=== PATIENT | male | born 1955 | race Native Hawaiian/Other Pacific Islander ===

== ENCOUNTER 2017-06-05 00:51 | Inpatient (IN) | payer OTHER ==
[2017-05-21 13:18] LABS: URINE BILIRUBIN NEGATIVE (Negative); URINE BLOOD TRACE (Negative); URINE COLOR YELLOW; URINE GLUCOSE-RANDOM* NEGATIVE (Negative); URINE KETONES NEGATIVE (Negative); URINE LEUKOCYTES-REFLEX NEGATIVE (Negative); URINE PROTEIN (DIPSTICK) NEGATIVE (Negative); URINE SPECIFIC GRAVITY 1.025 (1.003-1.035); URINE UROBILINOGEN 0.2 E.U./dl (0.2-1.0)
[2017-05-21 13:31] LABS: ALBUMIN 3.5 g/dL (3.4-5.0); CALCIUM 8.4 mg/dL (8.5-10.1); POTASSIUM 3.8 mmol/L (3.5-5.1); TOTAL BILIRUBIN 0.4 mg/dL (<0.1-1.0); TOTAL PROTEIN 6.5 g/dL (6.4-8.2)
[2017-05-21 15:29] LABS: HEMATOCRIT 41.6 % (42.0-52.0); HEMOGLOBIN 13.5 gm/dL (14.0-18.0); MCH 29.3 pg (26.0-34.0); MCHC 32.4 g/dL (28.0-37.0); MCV 90.2 fL (80.0-100.0); RBC 4.61 mil/uL (4.50-6.00); RDW 13.7 % (10.5-14.5); WBC 6.9 thou/uL (4.0-11.0)
[2017-05-21 15:32] LABS: INR 1.1; PROTIME 11.4 Seconds (9.3-11.4)
[2017-06-05] VITALS (8 sets, daily range): BP systolic 114–139; BP diastolic 69–84
[~2017-06-05] VITALS: Ht 175.3 cm; Wt 93.0 kg
--- NOTE | ~2017-06-05 | O ---
[facility] [place] [address] [place] [address] OPERATIVE REPORT Name: ILANA MURPHY Room #: 411-P [facility] M.R.#: [id number] Admission: 06/05/17 Attend Phys: Mateusz Yost MD Discharge: 06/08/17 Date of : 59 Report #: [id number] THIS REPORT FOR: //name// CC: Belle Yost DATE OF SERVICE: 06/05/2017 PREOPERATIVE DIAGNOSIS: Left knee degenerative joint disease, severe. POSTOPERATIVE DIAGNOSIS: Left knee degenerative joint disease, severe. PROCEDURE: Left total knee arthroplasty. SURGEON: Mateusz Yost MD. CRATE TIER: SYLWIA Wood. INDICATIONS FOR CRATE TIER: During the course of operation, extensive manipulation, retraction and limb positioning was required. This was afforded to me by my contract administrative assistant. ANESTHESIA: General. INDICATIONS: See hospital H and P. IMPLANTS UTILIZED: Used a [employer] knee system. We used a size 7 cruciate retaining Legion porous femoral component. Used a Sara II nonporous tibial baseplate, also size 7. We used a 9 mm polyethylene insert and a 35 mm patella. DESCRIPTION OF PROCEDURE: After adequate general anesthesia had been obtained, the patient's left lower extremity was prepped and draped in the usual meticulous sterile fashion. Limb was exsanguinated with gravity and tourniquet inflated to 350 torr. An anterior midline incision was made, subQ divided sharply. Hemostasis obtained with the electrocautery. Medial parapatellar incision was made. Infrapatellar fat pad excised. Medial release performed at the level of the joint only. The drill was used to drill the distal femur. This hole was enlarged, irrigated, suctioned and the intramedullary guide placed the full length of the femur. The distal femoral cutting guide was pinned at appropriate location and the distal femoral cut was made. We used a measuring device and determined that a size 7 was the appropriate size for this patient. We then marked the distal femur, impacted the cutting guide into position and the anterior, posterior and chamfer cuts were made. Rongeur was used to remove additional osteophytes. [facility] [address] [place] [address] OPERATIVE REPORT Name: ILANA MURPHY Room #: 411-P [facility] M.R.#: [id number] Admission: 06/05/17 Attend Phys: Mateusz Yost MD Discharge: 06/08/17 Date of : 59 Report #: [id number] At this time, the tibia was translated anteriorly, menisci were excised. The drill was used to drill central portion of the tibia. This hole was enlarged, irrigated, suctioned, and the intramedullary guide placed the full length of the tibia. The proximal tibial cutting guide placed at appropriate height. Proximal tibia cut was made, 7 tray gave us the best coverage on the tibia. The 9 tibial insert trial was placed with trial components and the knee was taken through a full range of motion. Knee had full extension and flexion and good stability to varus and valgus stressing. Patella tracked normally. At this time, the patella was measured, cutting guide clamped into place, patellar cut was made, 35 template gave us the best coverage. Pedicles were drilled, trial component put in position, it tracked normally. At this time, the knee was taken through several cycles of flexion and extension. Tibial tray rotation was marked. The femur was placed, the trial components were removed. The tibial keel cuts were made. The knee was irrigated with both pulse lavage and antibiotic irrigation. Bone plugs were placed in proximal tibia and distal femur. The cement was vacuum mixed and when it reached the appropriate consistency, the knee was thoroughly dried, the tibial tray was cemented in place. Excess cement was removed. The polyethylene was impacted in place and the femur impacted in place and the knee was taken out to 30 degrees of flexion with uniform compression placed across components. Patellar button was then cemented into place and again, excess cement was removed. Drains were placed superolaterally, both deep and superficial. The cement was allowed to fully cure. When it had done so, the knee was irrigated, dried thoroughly, inspected. The retinacular layer was then closed with combination of interrupted [id number] #1 Vicryl as well as running #1 Tevdek. SubQ was closed with 2-0 Monocryl, skin closed with josafat. Sterile compressive dressing applied. Tourniquet deflated. <ELECTRONICALLY SIGNED> By: Mateusz Yost MD 06/10/17 [id number] Mateusz Yost MD /nt
[~2017-06-05 00:51] MED LIST: COUMADIN6 MG PO; FLOMAX0.4 MG PO; HYDROCODONE-AP1 EA11 PO; IRON325 PO; ITRACONAZOLE100 MG PO; MAGOX 400400 MG PO; PROAIR HFA8.5 GM IH; PROSCAR 5MG TABL5 MG PO
[2017-06-06] VITALS: BP 135/70
[2017-06-06 06:01] LABS: HEMATOCRIT 38.8 % (42.0-52.0); HEMOGLOBIN 12.8 gm/dL (14.0-18.0); MCH 29.2 pg (26.0-34.0); MCV 88.5 fL (80.0-100.0); RBC 4.39 mil/uL (4.50-6.00); RDW 13.6 % (10.5-14.5); WBC 10.2 thou/uL (4.0-11.0)
[2017-06-06 08:00] VITALS: BP 130/68
[2017-06-06 13:50] VITALS: BP 130/68
[2017-06-06 16:48] VITALS: BP 108/75
[2017-06-06 20:23] VITALS: BP 123/70
[2017-06-07 03:31] VITALS: BP 127/61
[2017-06-07 05:28] LABS: HEMOGLOBIN 13.2 gm/dL (14.0-18.0); MCV 88.4 fL (80.0-100.0); RBC 4.41 mil/uL (4.50-6.00); RDW 13.5 % (10.5-14.5); WBC 10.2 thou/uL (4.0-11.0)
[2017-06-07 05:34] LABS: CALCIUM 8.3 mg/dL (8.5-10.1); MAGNESIUM 1.7 mg/dL (1.8-2.4); POTASSIUM 3.6 mmol/L (3.5-5.1)
[2017-06-07] MEDS ORDERED: XARELTO10 MG PO (07:03)
[2017-06-07] MEDS ORDERED: PERCOCET 10-321 EACH PO (07:03)
[2017-06-07 09:48] VITALS: BP 126/87
[2017-06-07 12:08] VITALS: BP 130/68
[2017-06-07 17:54] VITALS: BP 127/84
[2017-06-07 21:05] VITALS: BP 148/73
[2017-06-08 06:04] VITALS: BP 128/55
[2017-06-08 06:21] LABS: HEMATOCRIT 34.7 % (42.0-52.0); HEMOGLOBIN 11.7 gm/dL (14.0-18.0); MCH 29.6 pg (26.0-34.0); MCHC 33.7 g/dL (28.0-37.0); RBC 3.94 mil/uL (4.50-6.00); RDW 13.2 % (10.5-14.5); WBC 8.5 thou/uL (4.0-11.0)
[2017-06-08 06:31] LABS: CALCIUM 8.2 mg/dL (8.5-10.1); CREATININE 0.9 mg/dL (0.7-1.3); MAGNESIUM 2.2 mg/dL (1.8-2.4); POTASSIUM 3.7 mmol/L (3.5-5.1)
[2017-06-08 07:27] VITALS: BP 1321/78
[2017-06-08] MEDS ORDERED: COLACE100 MG PO (09:22)
== END 2017-06-08 15:10 | disposition home health service (06) | DRG 470 ==
LOC: PRE 00:51 → TBA 05:17 → 4N 05:17 → PRE 12:45 → ENTRNSPT 06-08 14:56 → EDTRNSPTSTS 06-08 15:01 → 4N 06-08 15:10
PROVIDERS: Nurse Practitioner Family; Orthopaedic Surgery
PROC: 0SRD0J9 Replacement of Left Knee Joint with Synthetic Substitute, Cemented, Open Approach (ICD-10-PCS; principal; 2017-06-05)
DX: M17.12 Unilateral primary osteoarthritis, left knee (principal); N40.0 Benign prostatic hyperplasia without lower urinary tract symptoms; G47.00 Insomnia, unspecified; D50.9 Iron deficiency anemia, unspecified; E83.42 Hypomagnesemia; Z28.21 Immunization not carried out because of patient refusal
CPT/HCPCS: 10790; 50010; 50101; 50415; 50954; 51130; 51225; 51320; 51412; 51771; 52001; 53078; 53364; 56525; 56527; 62110; 62900; 64041; 64043; 70005